=== PATIENT | male | born 1970 | race Caucasian/White ===

== ENCOUNTER 2017-03-24 15:37 | Inpatient (IN) | payer OTHER ==
[~2017-03-24] VITALS: Ht 180.3 cm; Wt 88.9 kg
[2017-03-24 15:51] VITALS: BP 153/97
[2017-03-24 16:17] LABS: BILIRUBIN 2+ (NEGATIVE); BLOOD TRACE-LYSED (NEGATIVE); CLARITY SL CLOUDY (CLEAR); COLOR YELLOW (YELLOW); GLUCOSE NEGATIVE (NEGATIVE); KETONE 1+ (NEGATIVE); LEUKO ESTERASE NEGATIVE (NEGATIVE); NITRITE POSITIVE (NEGATIVE); SPECIFIC GRAVITY >= 1.030 (1.005-1.030)
[2017-03-24 16:18] LABS: BASO # 0.1 10*3/uL (0.0-0.1); BASO % 1.2 % (0.0-1.0); EOS # 0.1 10*3/uL (0.0-0.4); HEMATOCRIT 46.5 % (42.0-52.0); HEMOGLOBIN 16.7 g/dl (14.0-18.0); LYMPH # 1.5 10*3/uL (1.3-4.4); LYMPH % 14.6 % (27.0-41.0); MEAN CELL VOLUME 98.5 fl (80.0-94.0); MEAN CORPUSCULAR HGB 35.4 pg (27.0-31.0); MEAN CORPUSCULAR HGB CONC 35.9 g/dl (33.0-37.0); MEAN PLATELET VOLUME 9.7 fl (9.6-12.3); MONO # 0.6 10*3/uL (0.1-1.0); MONO % 5.9 % (3.0-9.0); NEUT # 7.8 10*3/uL (2.3-7.9); NEUT % 76.8 % (47.0-73.0); PLATELET COUNT AUTOMATED 244 10*3/uL (130-400); RED BLOOD COUNT 4.72 10*6/uL (4.50-5.90); RED CELL DISTRI WIDTH 13.7 % (0-14.5); WHITE BLOOD COUNT 10.2 10*3/uL (4.8-10.8)
[2017-03-24 16:23] LABS: BACTERIA 2+; MUCOUS 3+
[2017-03-24 16:28] LABS: URINE AMPHETAMINES < 1000 (1000ng/ml); URINE BARBITURATES < 200 (200ng/ml); URINE BENZODIAZEPINES > 200 (200ng/ml); URINE CANNABINOIDS (THC) < 50 (50ng/ml); URINE COCAINE < 300 (300ng/ml); URINE METHADONE < 300 (300ng/ml); URINE OPIATES < 300 (300ng/ml)
[2017-03-24 16:30] VITALS: BP 142/95
[2017-03-24 16:33] LABS: URINE PHENCYCLIDINE < 25 (25ng/ml)
[2017-03-24 16:34] LABS: ALBUMIN 4.4 gm/dl (3.1-4.5); ALKALINE PHOSPHATASE 90 U/L (45-117); BUN 15 mg/dl (7-24); CHLORIDE 98 mmol/L (98-107); CREATININE 0.96 mg/dL (0.70-1.30); POTASSIUM 4.1 mmol/L (3.5-5.1); SGOT/AST 41 IU/L (3-35); SGPT/ALT 75 U/L (12-78); SODIUM 137 mmol/L (136-145); TOTAL PROTEIN 8.1 gm/dL (6.4-8.2)
--- NOTE | 2017-03-24 17:40 | NUR ---
A 46, admitted to , under the services of ERICKA Desai DO with a diagnosis of ALCOHOL DEPENDENCE. Chief complaint is ALCOHOL WITHDRAWAL. Patient arrived via ambulatory from ER. Monitor applied. Initial assessment completed. Vital signs taken and recorded. ERICKA DESAI DO notified of admission to the unit. Orders received. See assessment for past medical history, medications and allergies. Patient and/or family oriented to unit. [facility] visitation policy reviewed. Clothing/patient valuable form completed. REMY VILLEDA
[2017-03-24] MEDS ORDERED: PROTONIX40 MG PO (17:48)
[2017-03-24] MEDS ORDERED: ZANTAC 150150 MG PO (17:49)
[2017-03-24] MEDS ORDERED: REXULTI2 MG PO (17:49)
[2017-03-24] MEDS ORDERED: TRAZODONE100 MG PO (17:50)
[2017-03-24] MEDS ORDERED: TRINTELLIX20 MG PO (17:51)
[2017-03-24 17:58] VITALS: BP 151/78
--- NOTE | 2017-03-24 18:50 | NUR ---
Patient reports the following symptoms of withdrawal: restlessness, sweats, body aches. Patient given scheduled/PRN medication to control withdrawal symptoms. Close observation will be maintained. Family at bedside.
[2017-03-24 20:00] VITALS: BP 133/76
--- NOTE | 2017-03-24 20:40 | NUR ---
SPOKE WITH DR. GIBBONS AT THIS TIME PERTAINING TO PATIENT STILL BEING VERY ANXIOUS AND TREMORING. DR. GIBBONS ASKED HOW OFTEN THE IV ATIVAN WAS THIS NURSE STATED Q6H. DR. GIBBONS STATED TO GIVE HIM ANOTHER 2MG IV ATIVAN NOW AND CHANGE THE CURRENT ATIVAN ORDER TO Q4H.
--- NOTE | 2017-03-24 21:13 | NUR ---
ONE TIME DOSE OF ATIVAN GIVEN FOR PT COMPLAINTS OF ANXIETY AND TREMORS. CALL LIGHT WITHIN REACH, WILL MONITOR
--- NOTE | 2017-03-24 22:00 | NUR ---
ONE TIME DOSE OF ATIVAN SOMEWHAT EFFECTIVE, PER PT
--- NOTE | 2017-03-24 23:42 | NUR ---
NOTIFIED DR. GIBBONS AT THIS TIME THAT PATIENTS MED REC IS UP TO DATE AND THAT HE TAKES 100MG OF TRAZADONE AT NIGHT INSTEAD OF 50MG.
[2017-03-25] VITALS: BP 131/80
--- NOTE | 2017-03-25 01:23 | NUR ---
PRN ATIVAN GIVEN FOR PT COMPLAINTS OF ANXIETY AND FINE TREMORS. CALL LIGHT WITHN REACH, WILL MONITOR
--- NOTE | 2017-03-25 02:00 | NUR ---
PRN MEDICATION APPEARS EFFECTIVE, PT SLEEPING
--- NOTE | 2017-03-25 05:59 | NUR ---
PRN ATIVAN GIVEN FOR PT COMPLAINTS OF ANXIETY. CALL LIGHT WITHIN REACH, WILL MONITOR
[2017-03-25 08:00] VITALS: BP 126/83
--- NOTE | 2017-03-25 09:41 | NUR ---
MEDICATED WITH VISTARIL AT THIS TIME FOR RESTLESSNESS AND ANXIETY. PT IS NO LONGER HAVING VISIBLE TREMORS. PT IS INQUIRINGIN ABOUT THE ATIVAN. EXPLAINED TO PT HE HAD THE ATIVAN AT 0600 AND IT IS STILL TOO EARLY, BUT ALSO THE ATIVAN IS TO BE USED FOR MORE SEVERE TREMORS, SO WE SHOULD SEE IF THE VISTARIL IS EFFECTIVE FIRST. PT VERBALIZED UNDERSTANDING.
--- NOTE | 2017-03-25 10:20 | NUR ---
PT STATING EARLIER VISTARIL DID NOT HELP AND HE FEELS LIKE HE IS GETTING REALLY SHAKY AGAIN AND WANTS THE ATIVAN, EXPLAINED AGAIN TO THE PT THAT THE ATIVAN IS FOR THE MORE SEVERE TREMORS AND DT'S. PT STATES HE WANTS THE ATIVAN. SPOKE WITH DR DE LA CRUZ AND TEAM REGARDING THIS AND HOW PT'S APPEARANCE TO BE COMFORTABLE AND NO VISIBLE SHAKING NOTED, STATED OK TO GIVE ATIVAN.
--- NOTE | 2017-03-25 10:24 | NUR ---
ATIVAN GIVEN PER ORDER FOR REQUEST OF TREMORS AND ANXIETY. WILL MONITOR FOR EFFECTIVENESS.
--- NOTE | 2017-03-25 11:15 | NUR ---
PT RESTING COMFORTABLY, ATIVAN EFFECTIVE.
--- NOTE | 2017-03-25 11:45 | NUR ---
PT RESTING IN BED, PLACES CALL LIGHT ON ASKS FOR ATIVAN, STATES THAT HE NEEDS HIS ATIVAN, THAT HE IS FEELING ANXIOUS, PT RESTING IN BED WITH NO VISIBLE TREMORS, ADMINSTERED ATIVAN 1MG IV PRN PER ORDERS, WILL MONITOR EFFECTS,
[2017-03-25 12:00] VITALS: BP 128/81
--- NOTE | 2017-03-25 14:49 | NUR ---
PT COMPLAINING OF SEVERE ANXIETY AND SHAKING, PT DOES NOT APPEAR TO BE IN DISTRESS, OFFERED PT VISTARIL, PT STATES THE VISTARIL DOESN'T WORK HE NEEDS ATIVAN. ATIVAN GIVEN PER PRN ORDER. WILL MONITOR FOR EFFECTIVENESS.
--- NOTE | 2017-03-25 14:50 | NUR ---
SPOKE WITH DR BARTHOLOMEW AT THIS TIME, EXPLAINED THAT PT REFUSES TO TAKE VISTARIL, STATES IT IS NOT EFFECTIVE AND THAT PT CONTINUES TO REQUEST THE ATIVAN EVERY 4 HOURS REGULARLY, DESPITE PT APPEARING VERY COMFORTABLE, NO NOTABLE WITHDRAWAL SYMPTOMS, AND PT SLEEPS IN BETWEEN TIME PERIODS OF RECEIVING IT. HE STATES HE IS GOING TO DECREASE THE ATIVAN TO 1MG EVERY FOUR HOURS.
--- NOTE | 2017-03-25 15:30 | NUR ---
PT RESTING COMFORTABLY, NO DISTRESS NOTED. ATIVAN APPEARS EFFECTIVE.
[2017-03-25 16:00] VITALS: BP 108/73
--- NOTE | 2017-03-25 17:06 | NUR ---
MEDICATED WITH VISTARIL PER PT REQUEST FOR C/O ANXIETY. WILL MONITOR FOR EFFECTIVENESS.
--- NOTE | 2017-03-25 19:25 | NUR ---
PT COMPLAINING OF PAIN AT IV SITE, NEW IV ESTABLISHED IN LEFT ARM #20G. PT TOLERATED WELL.
--- NOTE | 2017-03-25 19:36 | NUR ---
MEDICATED WITH ATIVAN PER PT REQUEST FOR ANXIETY AND SHAKING. WILL MONITOR FOR EFFECTIVENESS.
[2017-03-25 20:00] VITALS: BP 136/91
--- NOTE | 2017-03-25 22:03 | NUR ---
PT RESTING COMFORTABLY, ATIVAN EFFECTIVE.
[2017-03-26] VITALS: BP 131/84
--- NOTE | 2017-03-26 01:02 | NUR ---
PT RESTING IN BED WITH EYES CLOSED RESPS EASY AND NONLABORED WITH NO S/S OF DISTRESS ATIVAN 1MG IV PRN EFFECTIVE AT THIS TIME
--- NOTE | 2017-03-26 06:55 | NUR ---
PT CALLS NURSE INTO [facility], AND STATES THAT HE IS ANXIOUS AND WANTS SOMETHING TO HELP HIM RELAX, PT ASKS IF THIS NURSE IS LEAVING AT 7 AND THIS NURSE REPLIED YES AND PT STATES TO GIVE HIM WHATEVER PRN MEDICATIONS THAT ARE AVAILABLE, INSTRUCTED PT TO SPEAK WITH MD IF MEDICATIONS ARE NOT EFFECTIVE FOR HIM, VERBAL UNDERSTANDING VOICED.
--- NOTE | 2017-03-26 07:31 | NUR ---
Shift chart check completed.
[2017-03-26 08:00] VITALS: BP 131/81
--- NOTE | 2017-03-26 08:53 | NUR ---
PATIENT MEDICATED WITH IVP ATIVAN FOR ANXIETY
--- NOTE | 2017-03-26 09:53 | NUR ---
PATIENT STATES MEDICATION EFFECTIVE
[2017-03-26 12:00] VITALS: BP 106/68; BP 106/88
--- NOTE | 2017-03-26 12:53 | NUR ---
PATIENT MEDICATED WITH IVP ATIVAN FOR ANXIETY
--- NOTE | 2017-03-26 13:53 | NUR ---
PATIENT STATES MEDICATION EFFECTIVE
--- NOTE | 2017-03-26 14:59 | NUR ---
D/C PLANNING: PATIENT WANTS INPATIENT TREATMENT. PATIENT WANTS TO GO TO [facility] [place]. [facility] PILOT/NAVIGATOR/DDS OPERATOR IS STILL IN THE PROCESS OF OBTAINING A BED FOR PATIENT. [facility] WILL CALL [facility] WEDNESDAY FOR BED. IMER PAUL B.A. [facility] PILOT/NAVIGATOR/DDS OPERATOR
[2017-03-26] MEDS ORDERED: ATARAX,VISTARIL50 MG PO (15:31)
[2017-03-26] MEDS ORDERED: ZOFRAN 4 MG ED2 TAB PO (15:31)
[2017-03-26 16:00] VITALS: BP 110/66
--- NOTE | 2017-03-26 16:57 | NUR ---
PATIENT MEDICATED WITH PO ROBAXIN FOR MUSCLE ACHES AND VISTARIL FOR ANXIETY
--- NOTE | 2017-03-26 17:31 | NUR ---
DR MARIE NOTIFIED THAT PATIENT IS UPSET THAT HIS ATIVAN HAS BEEN CHANGED.
--- NOTE | 2017-03-26 17:57 | NUR ---
PATIENT STATES MEDICATION EFFECTIVE
--- NOTE | 2017-03-26 18:53 | NUR ---
PATIENT MEDICATED WITH IVP ATIVAN FOR ANXIETY
[2017-03-26 20:00] VITALS: BP 137/92
[2017-03-27] VITALS: BP 110/73
[2017-03-27 05:53] LABS: BASO # 0.1 10*3/uL (0.0-0.1); BASO % 1.5 % (0.0-1.0); EOS # 0.2 10*3/uL (0.0-0.4); HEMATOCRIT 39.5 % (42.0-52.0); HEMOGLOBIN 13.6 g/dl (14.0-18.0); LYMPH # 2.1 10*3/uL (1.3-4.4); LYMPH % 39.1 % (27.0-41.0); MEAN CELL VOLUME 100.8 fl (80.0-94.0); MEAN CORPUSCULAR HGB 34.7 pg (27.0-31.0); MEAN CORPUSCULAR HGB CONC 34.4 g/dl (33.0-37.0); MEAN PLATELET VOLUME 10.4 fl (9.6-12.3); MONO # 0.6 10*3/uL (0.1-1.0); MONO % 10.2 % (3.0-9.0); NEUT # 2.5 10*3/uL (2.3-7.9); NEUT % 44.8 % (47.0-73.0); PLATELET COUNT AUTOMATED 176 10*3/uL (130-400); RED BLOOD COUNT 3.92 10*6/uL (4.50-5.90); RED CELL DISTRI WIDTH 13.8 % (0-14.5); WHITE BLOOD COUNT 5.5 10*3/uL (4.8-10.8)
[2017-03-27 06:02] LABS: CREATININE 0.89 mg/dL (0.70-1.30)
--- NOTE | 2017-03-27 07:45 | NUR ---
Shift chart check completed.
[2017-03-27 08:00] VITALS: BP 110/69
--- NOTE | 2017-03-27 08:20 | NUR ---
PATIENT MEDICATED WITH IVP ATIVAN FOR ANXIETY
--- NOTE | 2017-03-27 09:20 | NUR ---
PATIENT STATES MEDICATION EFFECTIVE
[2017-03-27 12:00] VITALS: BP 113/67
--- NOTE | 2017-03-27 14:26 | NUR ---
PATIENT MEDICATED WITH PO VISTARIL FOR ANXIETY
--- NOTE | 2017-03-27 15:17 | NUR ---
PATIENT STATES MEDICATION EFFECTIVE HE IS JUST TIRED NOW. WILL CONTINUE TO MONITOR.
[2017-03-27 16:00] VITALS: BP 94/51
[2017-03-27 20:00] VITALS: BP 111/68
--- NOTE | 2017-03-27 22:55 | NUR ---
PT C/O HEADACHE AND MUSCLE ACHES. MEDICATED WITH MOTRIN PO AND ROBAXIN PO PER PRN ORDER, SEE EMAR. PT IS UPSET BECAUSE THEY STOPPED HIS ATIVAN AND NEEDS SOMETHING FOR ANXIETY. CALLED DR. GIBBONS AND HE STATES TO USE VISTARIL HE WAS MEDICATED RECENTLY WITH VISTARIL. WILL CON'T TO MONITOR. CALL LIGHT IN REACH.
[2017-03-28] VITALS: BP 107/60
--- NOTE | 2017-03-28 | NUR ---
PT RESTING IN BED WITH EYES CLOSED. RESP-EASY AND REGULAR. CALL LIGHT IN REACH. MEDICATION SEEMS TO BE EFFECTIVE.
--- NOTE | 2017-03-28 04:00 | NUR ---
PT RESTING IN BED. RESP-EASY AND REGULAR.CALL LIGHT IN REACH.
--- NOTE | 2017-03-28 05:50 | NUR ---
TOLERATED ROUTINE MED WITH NO PROBLEM. CALL LIGHT IN REACH.
--- NOTE | 2017-03-28 06:30 | NUR ---
RESTING IN BED WITH EYES CLOSED. RESP-EASY AND REGULAR MEDICATION SEEMS TO BE EFFECTIVE. CALL LIGHT IN REACH.
--- NOTE | 2017-03-28 07:35 | NUR ---
Shift chart check completed.
[2017-03-28 08:00] VITALS: BP 125/78
--- NOTE | 2017-03-28 09:07 | NUR ---
PATIENT REFUSED LOVENOX SHOT. STATES HE HAS HAD BLEEDING AT THE SITE THE LAST 2 DAYS. PATIENT WAS CONCERNED YESTERDAY AND DID WATCH YESTERDAY AFTER GIVING THE SHOT AND THERE WAS NO BLEEDING FOR UP TO 1 MINUTE AFTER GIVING THE INJECTION.
[2017-03-28 11:59] VITALS: BP 108/59
--- NOTE | 2017-03-28 14:10 | NUR ---
PATIENT MEDICATED WITH PO ROBAXIN AND VISTARIL FOR ANXIETY AND MUSCLE ACHING
--- NOTE | 2017-03-28 15:10 | NUR ---
PATIENT STATES MEDICATION EFFECTIVE
[2017-03-28 16:00] VITALS: BP 128/67
--- NOTE | 2017-03-28 19:02 | NUR ---
PATIENT MEDICATED WITH PO MOTRIN FOR BACK AND HEADACHE RATED 5/10
[2017-03-28 20:00] VITALS: BP 133/79
--- NOTE | 2017-03-28 20:20 | NUR ---
PT AWAKE IN BED WATCHING TV. PT STATES THAT PAIN MED HAS NOT TAKEN EFFECT OF YET. PT TEACHING GIVEN ON NEED FOR IV ACCESS. PT ACCEPTED REASONING. NO OTHER CONCERNS VOICED.
[2017-03-29] VITALS: BP 130/80
--- NOTE | 2017-03-29 01:17 | NUR ---
24 HR chart check completed.
--- NOTE | 2017-03-29 01:28 | NUR ---
Patient resting. Responding to scheduled medications with fewer complaints of pain and anxiety.
[2017-03-29 04:00] VITALS: BP 118/71
[2017-03-29 08:00] VITALS: BP 117/73
--- NOTE | 2017-03-29 10:51 | NUR ---
Patient reports the following symptoms of withdrawal: body aches and anxiety . Patient given scheduled/PRN medication to control withdrawal symptoms. Close observation will be maintained.
--- NOTE | 2017-03-29 10:54 | NUR ---
Patient reports the following symptoms of withdrawal: body aches and anxiety . Patient given scheduled/PRN medication to control withdrawal symptoms. Close observation will be maintained.
--- NOTE | 2017-03-29 11:14 | NUR ---
MEDICATED WITH PRN PO BENTYL AND ZOFRAN FOR ABDOMINAL CRAMPS AND NAUSEA. PATIENT C/O DIZZINESS WITH AMBULATION, NAUSEA ALSO STARTED AT TIME OF AMBULATION.
--- NOTE | 2017-03-29 11:22 | NUR ---
OBTAINED ORTHOSTATIC BLOOD PRESSURE WITH THE FOLLOWING RESULTS: LYING BP 120/74, HR 56, SITTING BP 122/82 AND HR 60, SLIGHT DIZZINESS WITH SITTING, AND STANDING BP 124/79 AND HR 66 WITH INCREASED DIZZINESS W/STANDING.
[2017-03-29 12:00] VITALS: BP 120/80
--- NOTE | 2017-03-29 13:02 | NUR ---
Patient resting. Responding to scheduled medications with fewer complaints of pain and anxiety, AND NO FURTHER NAUSEA.
[2017-03-29] MEDS ORDERED: MOTION SICKNESS25 MG PO (13:13)
--- NOTE | 2017-03-29 15:54 | NUR ---
ANTIVERT X 1 WAS EFFECTIVE FOR DIZZINESS DISCHARGE ORDERS ARE ENTERED, PATIENT WILL FOLLOW UP INSTRUCTED BY [facility].
[2017-03-29 16:11] VITALS: BP 117/72
--- NOTE | 2017-03-29 16:12 | NUR ---
PATIENT AWAITING RIDE HOME, AFTER 5PM.
--- NOTE | 2017-03-29 16:12 | NUR ---
Discharge instructions reviewed with patient. Patient receptive and verbalizes understanding. Follow-up care arranged. Written instructions given to patient. JEREMY ESCALANTE
--- NOTE | 2017-03-29 17:33 | NUR ---
MEDICATED WITH PRN PO MOTRIN AND ROBAXIN FOR BODY ACHES AND CRAMPS AND PRN PO VISTARIL FOR ANXIETY.
--- NOTE | 2017-03-29 18:13 | NUR ---
PATIENT DISCHARG[facility], FOR TRANSPORT HOME BY PRIVATE VEHICLE WITH FAMILY.
== END 2017-03-29 18:13 | disposition home or self-care (01) | DRG 872 ==
LOC: ED 15:37 → 4E 15:51 → EDHOLD 15:51 → 4E 16:57
PROVIDERS: Emergency Medicine; Family Medicine; ADMIT Internal Medicine
DX: A41.9 Sepsis, unspecified organism (principal); N39.0 Urinary tract infection, site not specified; F10.239 Alcohol dependence with withdrawal, unspecified; Z71.6 Tobacco abuse counseling; F41.0 Panic disorder [episodic paroxysmal anxiety]; F32.9 Major depressive disorder, single episode, unspecified; K21.9 Gastro-esophageal reflux disease without esophagitis; Z72.0 Tobacco use; Z79.899 Other long term (current) drug therapy